=== PATIENT | male | born 1965 | race Caucasian/White ===

== ENCOUNTER 2016-07-22 21:15 | Emergency (ER) | payer OTHER ==
--- NOTE | 2016-07-22 21:36 | PDOC ---
History of Present Illness - General History Source: Patient Exam Limitations: No Limitations - History of Present Illness Initial Comments: The patient is a 50 year old male, accompanied by mother, with a significant past medical history of high liver enzymes and allergies, who presents to the emergency department today for further evaluation of neck swelling shortly prior to presenting. The patient states that he ate stuffed tomatoes with rice and chopped veal when the right side of his neck became swollen. He states that he took benedryl to alleviate symptoms with minimal relief. He notes that his neck pain is exacerbated on palpation. He denies any itching sensation or voice changes. <Hardeep Kimball - Last Filed: 07/22/16 21:59> <Mariluz Orozco - Last Filed: 07/23/16 01:14> - General Chief Complaint: Edema Stated Complaint: NECK SWELLING Time Seen by Provider: 07/22/16 21:35 Past History <Hardeep Kimball - Last Filed: 07/22/16 21:59> <Mariluz Orozco - Last Filed: 07/23/16 01:14> - Past Medical History Allergies/Adverse Reactions: Allergies Allergy/AdvReac Type Severity Reaction Status Date / Time acetaminophen Allergy Mild Rash Verified 07/22/16 21:26 Penicillins Allergy Mild Rash Verified 07/22/16 21:26 NSAIDS (Non-Steroidal Allergy Verified 07/22/16 21:17 Anti-Inflamma Home Medications: Ambulatory Orders Azithromycin [Zithromax Tri-Gopal (3 DAYS) -] 500 mg PO DAILY #3 tablet 07/22/16 Esomeprazole Magnesium [Nexium 24Hr] 40 mg PO DAILY 07/22/16 Review of Systems - Review of Systems Able to Perform ROS?: Yes Comments:: GENERAL/CONSTITUTIONAL: No fever or chills. No weakness. HEAD, EYES, EARS, NOSE AND THROAT: (+) Right neck edema. No change in vision. No ear pain or discharge. No sore throat. CARDIOVASCULAR: No chest pain or shortness of breath. RESPIRATORY: No cough, wheezing, or hemoptysis. GASTROINTESTINAL: No nausea, vomiting, diarrhea or constipation. GENITOURINARY: No dysuria, frequency, or change in urination. MUSCULOSKELETAL: No joint or muscle swelling or pain. No neck or back pain. SKIN: No rash NEUROLOGIC: No headache, vertigo, loss of consciousness, or change in strength/ sensation. ENDOCRINE: No increased thirst. No abnormal weight change. HEMATOLOGIC/LYMPHATIC: No anemia, easy bleeding, or history of blood clots. ALLERGIC/IMMUNOLOGIC: No hives or skin allergy. <Hardeep Kimball - Last Filed: 07/22/16 21:59> *Physical Exam - Vital Signs Last Vital Signs Temp Pulse Resp BP Pulse Ox 97.6 F 84 16 131/96 96 07/22/16 21:17 07/22/16 21:17 07/22/16 21:17 07/22/16 21:17 07/22/16 21:17 - Physical Exam Comments: GENERAL: Awake, alert, and fully oriented, in no acute distress HEAD: No signs of trauma EYES: PERRLA, EOMI, sclera anicteric, conjunctiva clear ENT: Auricles normal inspection, hearing grossly normal, nares patent, oropharynx clear without exudates. Moist mucosa. Minimal right sided pharyngeal edema NECK: Normal ROM, supple, no lymphadenopathy, JVD, or masses LUNGS: Breath sounds equal, clear to auscultation bilaterally. No wheezes, and no crackles HEART: Regular rate and rhythm, normal S1 and S2, no murmurs, rubs or gallops ABDOMEN: Soft, nontender, normoactive bowel sounds. No guarding, no rebound. No masses EXTREMITIES: Normal range of motion, no edema. No clubbing or cyanosis. No cords, erythema, or tenderness NEUROLOGICAL: Cranial nerves II through XII grossly intact. Normal speech, normal gait SKIN: Warm, Dry, normal turgor, no rashes or lesions noted. <Hardeep Kimball - Last Filed: 07/22/16 21:59> ED Treatment Course - LABORATORY CBC & Chemistry Diagram: 07/22/16 22:00 07/22/16 22:00 <Mariluz Orozco - Last Filed: 07/23/16 01:14> Medical Decision Making - Medical Decision Making 07/23/16 01:12 Pt comes with right neck swelling and pain prior to arrival. Pt states that he has on/off odynophagia. gave him benadryl prior to arrival, and feared he was having an allergic rxn. Pt has no hives, no sign of allergy. Pt has a positive strep throat test. Labs are normal; lyphocyte count normal. Pt has known elevated LFT; ALT is 70s. Pt will be diascharged with zithromax, as he is allergic to PCN; follow with PMD. <Mariluz Orozco - Last Filed: 07/23/16 01:14> *DC/Admit/Observation/Transfer - Attestations Scribe Attestion: Documentation prepared by Hardeep Kimball, acting as emergency medical technician for Mariluz Orozco MD. <Hardeep Kimball - Last Filed: 07/22/16 21:59> - Discharge Dispostion Admit: No <Mariluz Orozco - Last Filed: 07/23/16 01:14> Diagnosis at time of Disposition: Strep throat - Discharge Dispostion Disposition: HOME Condition at time of disposition: Stable - Prescriptions Prescriptions: Azithromycin [Zithromax Tri-Gopal (3 DAYS) -] 500 mg PO DAILY #3 tablet - Referrals Referrals: Ansley Lynn [Primary Care Provider] - - Patient Instructions Printed Discharge Instructions: Group B Streptococcal Disease
[2016-07-22 21:41] VITALS: BP 131/96; PULSE 84; TEMP 97.6; BMI 33.9
[2016-07-22] MEDS ORDERED: AZITHROMYCIN 250 MG TABLET (FP) PO ONE (22:17)
[2016-07-22] MEDS ORDERED: AZITHROMYCIN 250 MG TABLET (FP) ONE (22:19)
[2016-07-22 22:39] LABS: BASOPHIL 1.9 % (0-2.0); EOSINOPHIL 2.8 % (0-4.5); MCH 30.7 pg (25.7-33.7); MCHC 34.1 g/dl (32.0-35.9); MEAN CELL VOLUME 90.1 fl (80-96); MEAN PLT VOLUME 9.6 fl (7.5-11.1); NEUTROPHILS 50.3 % (42.8-82.8); PLATELET COUNT 238 K/MM3 (134-434); RDW 12.2 % (11.9-15.9); WHITE BLOOD COUNT 8.6 K/mm3 (4.0-10.8)
[2016-07-22 22:44] LABS: ALBUMIN 4.1 g/dl (3.5-5.0); ALK PHOS 59 U/L (32-92); ANION GAP 9 (8-16); BILIRUBIN,TOTAL 0.7 mg/dl (0.2-1.0); CALCIUM 9.6 mg/dl (8.4-10.2); CO2 27 mmol/L (22-28); COCKROFT - GAULT 141.74; GLUCOSE,RANDOM 96 mg/dl (74-106); SGOT/AST 42 U/L (10-42); SGPT/ALT 72 U/L (10-40); TOT PROT 7.3 g/dl (6.4-8.3)
== END 2016-07-22 23:12 | disposition home or self-care (01) ==
LOC: FER 21:15
DX: J02.0 Streptococcal pharyngitis (principal); R94.5 Abnormal results of liver function studies
CPT/HCPCS: 36415; 70360-TC; 80053; 85025; 87070; 87430; 99282-25

== ENCOUNTER 2016-12-17 23:53 | Emergency (ER) | payer OTHER ==
[2016-12-18 00:06] VITALS: BP 120/85; PULSE 85; TEMP 97.6; BMI 33.9
--- NOTE | 2016-12-18 00:28 | PDOC ---
History of Present Illness - General Chief Complaint: Pain Stated Complaint: THROAT PAIN Time Seen by Provider: 12/17/16 23:59 History Source: Patient Exam Limitations: No Limitations - History of Present Illness Initial Comments: 12/18/16 01:44 This is a 51-year-old male who comes in complaining of a lump/swelling on the side of his neck. Patient said it is been intermittent times several months. Patient said it is not painful. Patient otherwise denies any fever, chills, difficulty swallowing or difficulty breathing. Patient said he saw an ENT doctor yesterday and was started on clindamycin for possible infected salivary gland. Patient was also told that it may be a stone in the salivary gland. PAST MEDICAL HISTORY: no significant history PAST SURGICAL HISTORY: no significant history FAMILY HISTORY: no pertinant history SOCIAL HISTORY: Pt lives with family and is employed. MEDICATIONS: reviewed ALLERGIES: As per nursing notes Review of Systems General: No fevers or chills, no weakness, no weight loss HEENT: No change in vision. No sore throat,. No ear pain CardioVascular: No chest pain or shortness of breath Respiratory:No cough, or wheezing. Gastrointestinal: no nausea, vomitting, diarrhea or constipation, No rectal bleeding Genitourinary: No dysuria, hematuria, or frequency Musculoskeletal: No joint or muscle pain or swelling Neurologic: No headache, vertigo, dizziness or loss of consciousness Psychiatric: nor depression Skin: No rashes or easy bruising Endocrine: no increased thirst or abnormal weight change Allergic: no skin or latex allergy All other systems reviewed and normal GENERAL: The patient is awake, alert, and fully oriented, in no acute distress. HEAD: Normal with no signs of trauma. Neck: There is a freely mobile submandibular mass about 3 by 2 cm, non tender , no increase in warmth, erythema Posterior oropharynx is also normal. EYES: Pupils equal, round and reactive to light, extraocular movements intact, sclera anicteric, conjunctiva clear. EXTREMITIES: Normal range of motion, no edema. NEUROLOGICAL: Normal speech, normal gait. PSYCH: Normal mood, normal affect. SKIN: Warm, Dry, normal turgor, no rashes or lesions noted. 01:50 CT scan showed no abscess, no airway compromise no acute pathology. Assessment and plan: Patient given a dose of IV clindamycin and has clindamycin by mouth that he will continue that was given to him by the ENT doctor. Patient was told to take Tylenol or Motrin if needed for any pain Patient was told to call the ENT doctor in the morning and get a follow-up appointment Past History - Past Medical History Allergies/Adverse Reactions: Allergies Allergy/AdvReac Type Severity Reaction Status Date / Time acetaminophen Allergy Mild Rash Verified 12/17/16 23:57 Penicillins Allergy Mild Rash Verified 12/17/16 23:57 NSAIDS (Non-Steroidal Allergy Verified 12/17/16 23:57 Anti-Inflamma Home Medications: Ambulatory Orders Esomeprazole Magnesium [Nexium 24Hr] 40 mg PO DAILY 07/22/16 Clindamycin [Cleocin -] 300 mg PO Q8H 12/18/16 GI Disorders: Yes (GERD) Kidney Stones: (FATTY LIVER) Liver Disease: Yes (FATTY LIVER) - Surgical History Appendectomy: Yes - Suicide/Smoking/Psychosocial Hx Smoking History: Current every day smoker Have you smoked in the past 12 months: Yes Number of Cigarettes Smoked Daily: 20 Information on smoking cessation initiated: No 'Breaking Loose' booklet given: 07/22/16 Hx Alcohol Use: No Drug/Substance Use Hx: No Substance Use Type: None *Physical Exam - Vital Signs Last Vital Signs Temp Pulse Resp BP Pulse Ox 97.6 F 85 18 120/85 97 12/17/16 23:57 12/17/16 23:57 12/17/16 23:57 12/17/16 23:57 12/17/16 23:57 *DC/Admit/Observation/Transfer Diagnosis at time of Disposition: Palpable mass of neck - Discharge Dispostion Disposition: HOME Condition at time of disposition: Stable - Patient Instructions Additional Instructions: Your CAT scan was normal for any acute concerning problems regarding the mass in your neck. Continue the clindamycin as prescribed. Call your ENT doctor in the morning When you follow-up with. Time T doctor take a copy of her CAT scan with you Return to the emergency department immediately with ANY new, persistent or worsening symptoms. Continue any medications as previously prescribed by your physician. . Please make sure your doctor reviews the results of your emergency evaluation. Thank you for coming to the Emergency Department today for your care. It was a pleasure to see you today. Please note that your evaluation is INCOMPLETE until you follow-up with your doctor.
[2016-12-18] MEDS ORDERED: CLINDAMYCIN 900 MG PREMIX IVPB 50 ML IVPB ONE (00:33)
[2016-12-18] MEDS ORDERED: CLINDAMYCIN PHOSPHATE 300 MG/2 ML VIAL ONE (01:27)
[2016-12-18] MEDS ORDERED: CLINDAMYCIN PHOSPHATE 600 MG/4 ML VIAL ONE (01:27)
[2016-12-18 02:22] LABS: BASOPHIL 0.6 % (0-2.0); EOSINOPHIL 3.6 % (0-4.5); MCH 30.9 pg (25.7-33.7); MCHC 34.3 g/dl (32.0-35.9); MEAN CELL VOLUME 90.2 fl (80-96); MEAN PLT VOLUME 9.8 fl (7.5-11.1); NEUTROPHILS 55.1 % (42.8-82.8); PLATELET COUNT 228 K/MM3 (134-434); RDW 13.1 % (11.9-15.9); WHITE BLOOD COUNT 9.3 K/mm3 (4.0-10.0)
== END 2016-12-18 02:55 | disposition home or self-care (01) ==
LOC: FER 23:53
DX: R22.0 Localized swelling, mass and lump, head (principal); F17.210 Nicotine dependence, cigarettes, uncomplicated; K21.9 Gastro-esophageal reflux disease without esophagitis; K76.0 Fatty (change of) liver, not elsewhere classified
CPT/HCPCS: 36415; 70490-TC; 85025; 99284-25